=== PATIENT | male | born 1995 | race Two or more races ===

== ENCOUNTER 2016-05-01 01:28 | Emergency (ER) | payer OTHER ==
[2016-05-01] MEDS ORDERED: Dexamethasone IV* 4 MG/ML 1 ML (4 MG) IV SLOW PU ONE (02:09)
[2016-05-01] MEDS ORDERED: NS 0.9% 1000 ML* 2,000 ML IV ONE (02:09)
[2016-05-01] MEDS ORDERED: Ketorolac INJ* 30 MG/ML 1 ML VIAL IV PUSH ONE (02:10)
[2016-05-01 02:46] LABS: Hematocrit 47 % (42-52); Mean Corpuscular HGB Conc 34 g/dl (31-36); Mean Corpuscular Hemoglobin 30 pg (27-31); Mean Corpuscular Volume 88 fL (80-94); Mean Platelet Volume 9 um3 (7.4-10.4); Red Blood Count 5.35 10^6/ul (4.0-5.4); Red Cell Distribution Width 13 % (10.5-15); White Blood Count 11.9 10^3/ul (3.5-10.8)
[2016-05-01 02:56] LABS: Manual Entry Verification CAR0052; Mono Internal Control QC Line Present
[2016-05-01 03:01] LABS: BUN/Creatinine Ratio 13.2 (8-20); Calcium 9.2 mg/dL (8.6-10.3); EGFR African American 111.3 (>60); EGFR Non-African American 86.6 (>60); Potassium 3.4 mmol/L (3.5-5.0)
[2016-05-01] MEDS ORDERED: HYDROcodone/ACET. 7.5/325 LIQ* 15 ML UDC PO ONE (03:13)
[2016-05-01 04:31] VITALS: BP 119/76
--- NOTE | 2016-05-31 19:57 | ED ---
Geovanni Harrison Janilya, scribed for Arpit Matias MD on 05/01/16 at 0432 . HPI Febrile Illness - HPI Summary HPI Summary: A 21 y/o male came in to [facility] presenting w/ a gradual onset of constant Sx related to febrile illness starting 2 days ago. Pt reports sore throat, high fever, dizziness, body aches, increased heart rate. Pt states that he took Ibuprofen 2 tablets of 400 mg and Acetaminophen with little relief. - History of Current Complaint Chief Complaint: EDGeneral Time Seen by Provider: 05/01/16 01:38 Hx Obtained From: Patient Onset/Duration: Started Days Ago, Atraumatic, Still Present Timing: Constant Initial Severity: Moderate Current Severity: Moderate Pain Intensity: 10 Pain Scale Used: 0-10 Numeric Aggravating Factors: Nothing Alleviating Factors: Nothing Associated Signs and Symptoms: Dizziness, Myalgia - Allergy/Home Medications Allergies/Adverse Reactions: Allergies Allergy/AdvReac Type Severity Reaction Status Date / Time No Known Allergies Allergy Verified 05/01/16 02:45 PMH/Surg Hx/FS Hx/Imm Hx Previously Healthy: Yes Infectious Disease History: No Infectious Disease History: Reports: Traveled Outside the [place] in Last 30 Days - [place] - Family History Known Family History: Negative: Cardiac Disease - Social History Occupation: Student - [employer] Alcohol Use: Rare Substance Use Type: Reports: None Smoking Status (MU): Never Smoked Tobacco Review of Systems Positive: Fever. Negative: Chills Negative: Erythema Positive: Sore Throat Positive: Other - increased heart rate. Negative: Chest Pain Negative: Shortness Of Breath, Cough Negative: Abdominal Pain, Vomiting, Nausea Negative: dysuria, hematuria Positive: Arthralgia - overall body aches, Myalgia - overall body aches Neurological: Other - pt reports dizziness All Other Systems Reviewed And Are Negative: Yes Physical Exam - Summary Physical Exam Summary: Constitutional: Well-developed, Well-nourished, Alert. (-) Distressed Skin: Warm, Dry HENT: Normocephalic; Erythematous tonsils, (-) trismus, tolerating secretions Eyes: Conjunctiva normal Neck: Musculoskeletal ROM normal neck. (-) JVD, (-) Stridor, (-) Tracheal deviation Cardio: Rhythm regular, rate normal, Heart sounds normal; Intact distal pulses; The pedal pulses are 2+ and symmetric. Radial pulses are 2+ and symmetric. (-) Murmur Pulmonary/Chest wall: Effort normal. (-) Respiratory distress, (-) Wheezes, (-) Rales Abd: Soft, (-) Tenderness, (-) Distension, (-) Guarding, (-) Rebound Musculoskeletal: (-) Edema Lymph: (-) Cervical adenopathy Neuro: Alert, Oriented x3 Psych: Mood and affect Normal Triage Information Reviewed: Yes Vital Signs On Initial Exam: Initial Vitals Temp Pulse Resp BP Pulse Ox 99.8 F 109 20 126/90 97 05/01/16 01:30 05/01/16 01:30 05/01/16 01:30 05/01/16 01:30 05/01/16 01:30 Vital Signs Reviewed: Yes - [place] Coma Scale Coma Scale Total: 15 Diagnostics - Vital Signs Vital Signs Temp Pulse Resp BP Pulse Ox 05/01/16 03:20 20 05/01/16 03:00 78 121/69 98 05/01/16 02:30 93 122/77 97 05/01/16 02:00 98 113/79 96 05/01/16 01:40 105 119/80 96 05/01/16 01:35 105 96 05/01/16 01:30 99.8 F 109 20 126/90 97 - Laboratory Lab Results: Lab Results 05/01/16 05/01/16 05/01/16 Range/Units 02:33 02:33 03:46 WBC 11.9 H (3.5-10.8) 10^3/ul RBC 5.35 (4.0-5.4) 10^6/ul Hgb 16.0 (14.0-18.0) g/dl Hct 47 (42-52) % MCV 88 (80-94) fL MCH 30 (27-31) pg MCHC 34 (31-36) g/dl RDW 13 (10.5-15) % Plt Count 144 L (150-450) 10^3/ul MPV 9 (7.4-10.4) um3 Sodium 135 (133-145) mmol/L Potassium 3.4 L (3.5-5.0) mmol/L Chloride 103 (101-111) mmol/L Carbon Dioxide 23 (22-32) mmol/L Anion Gap 9 (2-11) mmol/L BUN 14 (6-24) mg/dL Creatinine 1.06 (0.67-1.17) mg/dL Est GFR ( Amer) 111.3 (>60) Est GFR (Non-Af Amer) 86.6 (>60) BUN/Creatinine Ratio 13.2 (8-20) Glucose 113 H (70-100) mg/dL Calcium 9.2 (8.6-10.3) mg/dL Monoscreen Negative (Negative) Group A Strep Rapid Negative (Negative) Result Diagrams: 05/01/16 02:33 05/01/16 02:33 Lab Statement: Any lab studies that have been ordered have been reviewed, and results considered in the medical decision making process. Course/Dx - Diagnoses Provider Diagnoses: Viral pharyngitis Discharge - Discharge Plan Condition: Stable Disposition: HOME Patient Education Materials: Pharyngitis (ED) Forms: *School Release Referrals: MELINDA Gilmore [Primary Care Provider] - Additional Instructions: Follow up with Melinda within 2 days. The documentation as recorded by the Geovanni hdez Janilya accurately reflects the service I personally performed and the decisions made by Florencio townsend Jerry, MD.
== END 2016-05-01 04:39 | disposition home or self-care (01) ==
LOC: ED 01:28
DX: J02.9 Acute pharyngitis, unspecified (principal); M79.1 Myalgia; R42 Dizziness and giddiness; R50.9 Fever, unspecified
CPT/HCPCS: 36415; 80048; 85027; 86308; 87651; 96374; 96375; 99283; J1100; J1885